=== PATIENT | female | born 2005 | race Caucasian/White ===

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

== ENCOUNTER 2025-04-24 18:12 | Emergency (ER) | payer BC, SELFPAY ==
--- NOTE | ~2025-04-24 | XR_ITS ---
CLINICAL HISTORY: pain, injury Four views of the right knee. COMPARISON: XR right knee dated 05/02/22 at 01:27 EDT FINDINGS: Small suprapatellar joint effusion. Fabella present. Insall-Salvati ratio of 1.7. Joint spaces are maintained. Visualized portions of the distal femur, patella, and proximal tibia and fibula appear intact. IMPRESSION: 1. Small right suprapatellar joint effusion. 2. Patella jeffrey. This document has been electronically signed by: Emeka Mckeon MD on 04/24/2025 19:05:20
[2025-04-24 18:24] VITALS: BP 113/56; BP 122/78; PULSE 85; PULSE 96; RESP 16; TEMP 36.4; O2SAT 96; O2SAT 98; BMI 20.2
--- NOTE | 2025-04-24 18:24 | ED_ITS ---
HPI - General Adult General Chief complaint: Extremity Injury, Lower Stated complaint: knee dislocation Time Seen by Provider: 04/24/25 19:53 Source: patient and EMS Mode of arrival: EMS Limitations: no limitations History of Present Illness ED Provider: Geovanna Sethi PA-C HPI narrative: Patient is a 20 year old assigned female at with a history of CMT presenting to the emergency department today with right knee pain. Patient states that she accidentally twisted her right knee and dislocated it. Patient states that EMS helped her put her knee cap back in place but she is still having pain. Patient states that with her CMT diagnosis - this is not uncommon. Patient denies any other complaints at this time. Related Data Previous Rx's ?Medication ?Instructions ?Recorded ibuprofen 400 mg tablet 400 mg PO Q6H PRN pain #20 t abs 05/02/22 Allergies Allergy/AdvReac Type Severity Reaction Status Date / Time No Known Allergies Allergy Verified 04/24/25 18:24 Review of Systems Constitutional: Constitutional: Reports as per HPI Eyes: Eyes: Reports as per HPI ENT: Reports as per HPI Cardiovascular: Cardiovascular: Reports as per HPI Respiratory: Respiratory: Reports as per HPI Gastrointestinal: Gastrointestinal: Reports as per HPI Genitourinary: Genitourinary: Reports as per HPI Musculoskeletal: Musculoskeletal: Reports as per HPI Integumentary/Breasts: Skin/Breast: Reports as per HPI Neurologic: Reports as per HPI Psychiatric: Psychiatric: Reports as per HPI Endocrine: Endocrine: Reports as per HPI Hematologic/Lymphatic: Hematologic/Lymphatic: Reports as per HPI Allergic/Immunologic: Allergic/Immunologic: Reports as per HPI [facility] Past Medical History Attestation statement: The following information was validated with the patient. Source: old records reviewed and nursing notes reviewed Social History Social History Advance Directives: No Advance Directives Information Provided: Yes Physical Exam ED Vital Signs: Vital Signs - 24 hr 04/24/25 18:24 Temperature 97.6 F Pulse Rate 85 Respiratory Rate 16 Blood Pressure 113/56 L Pulse Oximetry 98 Oxygen Delivery Method Room Air BMI result Body Mass Index 20.2 Const General: cooperative, no acute distress, alert and awake Nutritional Appearance: well nourished Orientation/consciousness: patient oriented x3 HENMT Head: Yes normal to inspection and Yes atraumatic Ears: hearing grossly normal bilaterally and external ears normal General nose exam: Normal external nose present, no nasal discharge noted and no epistaxis Face and sinus: Yes normal facial exam, No abrasion and No laceration Mouth: Normal oral and palatal mucosa present, no drooling and no muffled voice Eyes General: appearance normal, both eyes and all related structures Periorbital: periorbital findings normal Eyelids: Yes eyelids normal Conjunctivae: conjunctivae normal Pupils: Equal, round and reactive pupils present EOM: EOMs intact bilaterally Neck Neck: Yes normal visual inspection and Yes full ROM Resp Effort & Inspection: normal respiratory effort and able to speak in complete sentences Neuro General: patient oriented x3, moves all extremities and CN's II-XI intact bilaterally Cranial nerves: Yes Equal, round and reactive pupils present Cognition (Neuro): normal cognition Extrem General: Yes normal to inspection, Yes full ROM and Yes capillary refill normal Psych Appearance: grossly normal Mental Status: mental status grossly normal Affect: normal affect Attitude: cooperative Thought process: Normal thought process present Thought content: Normal thought content present Insight: Good insight present (Psych) Course Course Course Narrative: Rapid medical examination performed in triage by Geovanna Sethi PA-C. Patient is a 19 year old assigned female at presenting to the emergency department with right knee pain after a dislocation. Detailed physical exam and review of systems are deferred to the produce specialist. Imaging ordered. Patient placed back in the waiting room pending room availability and results. Procedures Orthopedic Splinting/Casting Right knee: Side: right Lower Extremity Injury Location: knee Lower Extremity Immobilizer: knee immobilizer Other Orthopedic Equipment: crutches Medical Decision Making Medical Decision Making MDM Narrative: Patient is a 20 year old assigned female at with a history of CMT presenting to the emergency department today with right knee pain. Patient's physical exam was unremarkable. Patient's right knee x-ray showed no acute process. Patient's clinical presentation is most consistent with s/p knee dislocation and reduction vs knee sprain s/p dislocation reduction. I explained my physical exam findings as well as all test results to the patient. I answered all questions asked by the patient. Patient's right knee was placed in a knee immobilizer, without incident. Patient's PMS was intact and present to the RLE after immobilizer placement. Patient was given crutches with crutch instructions. Patient was able to demonstrate appropriate crutch use. I stressed the importance of the patient taking her medication as directed (either prescribed or as the over the counter packaging recommends). I stressed the importance of the patient following up with her primary care provider and the orthopedic team. I stressed the importance of the patient returning to the emergency department immediately if her symptoms were to worsen or if she were to develop any dizziness, shortness of breath, difficulty breathing, chest pain, blurry vision, loss of vision, nausea, vomiting, abdominal pain, fever, chills, back pain, or any other complaints. Patient verbalized agreement and understanding with this treatment plan and discharge. Differential Diagnosis Differential Diagnoses: The differential diagnosis associated with the presentation includes Right knee sprain Right knee strain Right knee dislocation Right knee reduction Admission/Observation Consideration of admission/observation: Escalation of care including admission/observation considered Patient would have been admitted to the hospital had her work up had any findings where hospital admission was appropriate and her clinical presentation warranted hospital admission. Independent Interpretation I performed an independent interpretation of an: Plain X-Ray Interpretation: My interpretation is in agreement with the radiologist's impression of this imaging study. Reason for Exam: pain, injury CLINICAL HISTORY: pain, injury Four views of the right knee. COMPARISON: XR right knee dated 05/02/22 at 01:27 EDT FINDINGS: Small suprapatellar joint effusion. Fabella present. Insall-Salvati ratio of 1.7. Joint spaces are maintained.Visualized portions of the distal femur, patella, and proximal tibia and fibula appear intact. IMPRESSION: 1. Small right suprapatellar joint effusion. 2. Patella jeffrey. This document has been electronically signed by: Emeka Mckeon MD on 04/24/2025 19:05:20 Dictated By: Emeka Mckeon MD Signed By: Electronically signed by Emeka Mckeon MD 04/25/25 0156 Radiology Impression Discussion of test interpretation with radiology: I have reviewed the radiologist's reading. Independent Historian Clinical information obtained from an independent historian. History obtained from or confirmed by: EMS (EMS provided additional history and confirmed the history provided by the patient. ) Discharge Plan Discharge Clinical Impression: Knee cap dislocation, Knee sprain Patient Disposition: Home, Self-Care Instructions: Crutch Instructions (ED), Knee Immobilizer (ED), Knee Sprain (DC) Additional Instructions: You may remove your immobilizer as needed. IF you are prescribed home medications and/or you are taking over the counter medications at home - it is very important you continue to do so as prescribed / directed unless told otherwise. Follow up with a primary care provider. Return to the emergency department immediately if your symptoms worsen or if you develop any numbness, tingling, dizziness, shortness of breath, difficulty breathing, chest pain, blurry vision, loss of vision, nausea, vomiting, abdominal pain, fever, chills, back pain, or any other complaints. If you do not have a primary care provider - call any of the below numbers to establish and follow up with a primary care provider. [facility] ([place]) [phone] [place] [address], [id number] [facility] ([address] [place]) [phone] [place] [address], [address] [facility], [address] [facility] ([address] [place]) [phone] [place] [address], [address] [facility], [address] [facility] ([place]) [phone] [place] [address], [address] [facility], [address] [facility] Family Medicine [phone] [place] [address], [id number] Please see the information below about our Patient Portal. If you are not yet enrolled in the [facility] Patient Portal, you will receive an enrollment email invitation following your visit to any [facility] care setting. You may also self-enroll in the Patient Portal by visiting our website: [email or web address] The following information is required to access the Patient Portal: - Your [facility] Medical Record Number - Your personal home email address (must match what is in your electronic medical record, Registration staff can assist with this) - Name - Date of Capabilities of the Patient Portal: - Message some providers - View upcoming appointments - Access your health summary, medical history, and visit history - View current conditions and allergies - View procedure and lab results - View your medications, including guidelines, side effects, and precautions - Complete pre-appointment questionnaires requested by your provider - Ready summary reports of your office visits and procedures To access the Patient Portal Mobile [facility], follow these directions: - Search apps[employer]edom in the [employer] Store or [employer] Store - Download the [place] - Search for [facility] - Enter your login/password Prescriptions: No Action ibuprofen 400 mg tablet 400 mg PO Q6H PRN (Reason: pain) Qty: 20 0RF Referrals: [facility] [Provider Group] Referral Note: Call to establish and follow up with the orthopedic team. Interventions: ED Discharge Assessment Last Done: 04/24/25 20:28 Discharge Date/Time: 04/24/25 20:28 Print Language: [place]
[2025-04-24 20:28] VITALS: BP 113/56; PULSE 85; RESP 16; TEMP 36.4; O2SAT 98
== END 2025-04-24 20:28 | disposition home or self-care (01) ==
PROVIDERS: Emergency Provider Emergency Medicine Emergency Medical Services
DX: S83.91XA Sprain of unspecified site of right knee, initial encounter (principal); S83.004A Unspecified dislocation of right patella, initial encounter; X58.XXXA Exposure to other specified factors, initial encounter; Y93.9 Activity, unspecified; Y92.9 Unspecified place or not applicable; Y99.9 Unspecified external cause status; M25.561 Pain in right knee
CPT/HCPCS: 73564; 99282; 99283

== ENCOUNTER → 2025-04-24 18:30 | Outpatient (BNV) | payer BC, SELFPAY | PROVIDERS: Emergency Provider Emergency Medicine Emergency Medical Services; Visit Provider Radiology Diagnostic Radiology | DX: S83.104A Unspecified dislocation of right knee, initial encounter (principal); M25.461 Effusion, right knee | CPT/HCPCS: 73564 ==